=== PATIENT | male | born 1965 | race Caucasian/White ===

== ENCOUNTER → 2017-04-21 | Outpatient (CLI) | payer BC ==
[~2017-04-21] MED LIST: AMIT50TA3 PO; IBUP-1050 PO
--- NOTE | 2017-04-21 10:48 | DIAGNOSTIC IMAGING REPORT ---
L FOOT MIN 3 VIEWS ROUTINE, L ANKLE MIN 3 VIEWS ROUTINE HISTORY: 52 years-old Male S93.602A Sprain of left [id number] acute left foot and ankle pain for a few weeks. No reported trauma. COMPARISON: None available TECHNIQUE: 3 views of the left foot and 3 views of the left ankle FINDINGS: FOOT: Mild first MTP joint osteoarthritis. Mild degenerative changes also seen about the midfoot. There is no acute fracture or dislocation. Mild soft tissue swelling about the ankle. ANKLE: There is no acute fracture or dislocation. Mild soft tissue swelling is noted circumferentially about the ankle. No opaque foreign body. IMPRESSION: 1. Mild soft tissue swelling about the ankle without acute fracture or dislocation identified involving the left foot or ankle. 2. Mild degenerative changes as above. The above report was generated using voice recognition software. It may contain grammatical, syntax or spelling errors. Electronically signed by: Song Mcclellan M.D. 04/21/2017 10:47 AM Dictated Date/Time: 04/21/2017 10:45 AM
--- NOTE | 2017-04-21 10:49 | DIAGNOSTIC IMAGING REPORT ---
L FOOT MIN 3 VIEWS ROUTINE, L ANKLE MIN 3 VIEWS ROUTINE HISTORY: 52 years-old Male S93.602A Sprain of left [id number] acute left foot and ankle pain for a few weeks. No reported trauma. COMPARISON: None available TECHNIQUE: 3 views of the left foot and 3 views of the left ankle FINDINGS: FOOT: Mild first MTP joint osteoarthritis. Mild degenerative changes also seen about the midfoot. There is no acute fracture or dislocation. Mild soft tissue swelling about the ankle. ANKLE: There is no acute fracture or dislocation. Mild soft tissue swelling is noted circumferentially about the ankle. No opaque foreign body. IMPRESSION: 1. Mild soft tissue swelling about the ankle without acute fracture or dislocation identified involving the left foot or ankle. 2. Mild degenerative changes as above. The above report was generated using voice recognition software. It may contain grammatical, syntax or spelling errors. Electronically signed by: Song Mcclellan M.D. 04/21/2017 10:47 AM Dictated Date/Time: 04/21/2017 10:45 AM
== END | disposition home or self-care (01) ==
LOC: C.RADBC 09:06
PROVIDERS: ATTEND Internal Medicine
DX: S93.602A Unspecified sprain of left foot, initial encounter (principal); X58.XXXA Exposure to other specified factors, initial encounter